=== PATIENT | male | born 1955 | race Caucasian/White ===

== ENCOUNTER 2023-04-12 19:36 | Emergency (ER) | payer OTHER ==
[2023-04-12 19:59] VITALS: BP 147/82; PULSE 85; RESP 16; TEMP 97.8; BMI 31.2
== END 2023-04-12 20:47 | disposition home or self-care (01) ==
LOC: FER 19:36
DX: Z76.0 Encounter for issue of repeat prescription (principal)
CPT/HCPCS: 82962; 99282-25

== ENCOUNTER 2024-11-10 12:26 | Emergency (ER) | payer OTHER ==
[2024-11-10 12:48] VITALS: BP 141/88; PULSE 79; RESP 18; TEMP 97.8; BMI 31.5
== END 2024-11-10 14:25 | disposition home or self-care (01) ==
LOC: FER 12:26
DX: E11.649 Type 2 diabetes mellitus with hypoglycemia without coma (principal)
CPT/HCPCS: 82962; 99283-25

== ENCOUNTER 2024-12-01 14:02 | Emergency (ER) | payer OTHER ==
[2024-12-01 14:21] VITALS: BP 140/80; PULSE 80; RESP 14; TEMP 98.3; BMI 31.4
[2024-12-01] MEDS ORDERED: KETOROLAC TROMETHAMINE 30 MG/1 ML VIAL ONE (15:30)
[2024-12-01] MEDS: KETOROLAC TROMETHAMINE 15 MG/ML VIAL IM ONE (15:32)
== END 2024-12-01 15:52 | disposition home or self-care (01) ==
LOC: FER 14:02
PROC: 3E0233Z Introduction of Anti-inflammatory into Muscle, Percutaneous Approach (ICD-10-PCS; principal; 2024-12-01)
DX: M25.512 Pain in left shoulder (principal); G89.29 Other chronic pain
CPT/HCPCS: 73030-TC-LT-FY; 96372; 99284-25